=== PATIENT | female | born 1975 | race Caucasian/White ===

== ENCOUNTER 2017-03-08 15:20 | Inpatient (IN) | payer MEDICAID ==
[~2017-03-08] VITALS: Ht 165.1 cm; Wt 93.2 kg
[2017-03-08 16:26] VITALS: Ht 165.1 cm; Wt 93.2 kg
[2017-03-08] MEDS ORDERED: PREN-6 PO (16:28)
[2017-03-08] MEDS ORDERED: CLINDAMYCIN 900 MG/D5W (PMX) 50 ML IV SCH (16:30)
[2017-03-08] MEDS ORDERED: MISOPROSTOL 200 MCG TAB PR PRN (16:30)
[2017-03-08] MEDS ORDERED: OXYTOCIN 30 UNITS/LR 500 ML IV SCH (16:30)
[2017-03-08] MEDS ORDERED: METHYLERGONOVINE 0.2 MG INJ IM PRN (16:30)
[2017-03-08] MEDS ORDERED: CARBOPROST 250 MCG INJ IM PRN (16:30)
[2017-03-08] MEDS ORDERED: OXYTOCIN 30 UNITS/LR 500 ML IV PRN (16:30)
[2017-03-08] MEDS: LACTATED RINGER'S 1,000 ML IV SCH (17:01)
[2017-03-08 17:09] LABS: BASOPHILS % 0.1 % (0.0-2.0); EOSINOPHILS % 0.6 % (0.0-7.0); HEMATOCRIT 40.6 % (37.0-47.0); HEMOGLOBIN 13.9 g/dl (12.0-16.0); LYMPHOCYTES # 1.7 10^3/ul (0.8-2.9); LYMPHOCYTES % 24.1 % (15.0-51.0); MEAN CORPUSCULAR HEMOGLOBIN 30.2 pg (29.0-33.0); MEAN CORPUSCULAR HGB CONC 34.2 g/dl (32.0-37.0); MEAN CORPUSCULAR VOLUME 88.1 fl (82.0-101.0); MEAN PLATELET VOLUME 10.4 fl (7.4-10.4); MONOCYTE # 0.5 10^3/ul (0.3-0.9); MONOCYTES % 7.8 % (0.0-11.0); NEUTROPHIL # 4.7 10^3/ul (1.6-7.5); NEUTROPHILS % 67.1 % (39.0-77.0); PLATELET COUNT 245 10^3/UL (140-415); RED BLOOD COUNT 4.61 10^6/ul (4.20-5.40); RED CELL DISTRIBUTION WIDTH 14.1 % (11.5-14.5)
[2017-03-08 17:26] LABS: INR 0.94; PROTIME 12.6 Sec (12.2-14.2)
[2017-03-08 17:27] LABS: PARTIAL THROMBOPLASTIN TIME 27.5 Sec (25.0-35.0)
[2017-03-08] MEDS ORDERED: GLUCAGON 1 MG INJ IM PRN ×2 (17:30)
[2017-03-08] MEDS ORDERED: DEXTROSE 50% 50 ML SYRINGE IV PRN ×4 (17:30)
[2017-03-08] MEDS ORDERED: GLUCOSE GEL 15 GRAM TUBE PO PRN ×4 (17:30)
[2017-03-08] MEDS ORDERED: GLUCOSE GEL 15 GRAM TUBE BUCCAL PRN ×2 (17:30)
[2017-03-08] MEDS ORDERED: CEFAZOLIN 2 GM/50 ML (PMX) 50 ML IVPB ONE (19:30)
[2017-03-08] MEDS: DEXTROSE 5%-LR 1,000 ML IV SCH (19:36)
[2017-03-08] MEDS: ACCU-CHEK XX SCH (21:00)
[2017-03-08] MEDS: INSULIN ASPART [NOVOLOG] 3 ML PEN SC SCH (21:00)
[2017-03-09 00:20] LABS: BASOPHILS % 0.1 % (0.0-2.0); EOSINOPHILS % 0.5 % (0.0-7.0); HEMATOCRIT 38.2 % (37.0-47.0); HEMOGLOBIN 13.1 g/dl (12.0-16.0); LYMPHOCYTES # 1.3 10^3/ul (0.8-2.9); LYMPHOCYTES % 15.6 % (15.0-51.0); MEAN CORPUSCULAR HGB CONC 34.3 g/dl (32.0-37.0); MEAN CORPUSCULAR VOLUME 87.4 fl (82.0-101.0); MEAN PLATELET VOLUME 10.1 fl (7.4-10.4); MONOCYTE # 0.5 10^3/ul (0.3-0.9); MONOCYTES % 6.4 % (0.0-11.0); NEUTROPHIL # 6.4 10^3/ul (1.6-7.5); PLATELET COUNT 213 10^3/UL (140-415); RED BLOOD COUNT 4.37 10^6/ul (4.20-5.40); WHITE BLOOD COUNT 8.3 10^3/ul (4.8-10.8)
[2017-03-09 00:53] LABS: ALBUMIN/GLOBULIN RATIO 0.85; BILIRUBIN,INDIRECT 0.4 mg/dl (0-1.1); BILIRUBIN,TOTAL 0.4 mg/dl (0.2-1.3); CALCIUM 8.9 mg/dl (8.4-10.2); CREATININE 0.6 mg/dl (0.44-1.00); POTASSIUM 3.6 mmol/L (3.5-5.1); TOTAL PROTEIN 6.5 g/dl (6.1-8.1); URIC ACID 4.7 mg/dl (3.1-7.9)
[2017-03-09] MEDS: INSULIN ASPART [NOVOLOG] 3 ML PEN SC SCH ×4 (01:00→13:00)
[2017-03-09] MEDS: ACCU-CHEK XX SCH ×4 (01:00→13:00)
[2017-03-09] MEDS: LACTATED RINGER'S 1,000 ML IV SCH ×3 (03:06→14:10)
[2017-03-09] MEDS: DEXTROSE 5%-LR 1,000 ML IV SCH ×2 (03:30→11:30)
[2017-03-09 04:30] LABS: ADD UMIC NO; UR ASCORBIC ACID NEGATIVE (NEGATIVE); UR BILIRUBIN (Dip) NEGATIVE (NEGATIVE); UR BLOOD (Dip) NEGATIVE (NEGATIVE); UR CLARITY CLEAR (CLEAR); UR COLOR YELLOW (YELLOW); UR GLUCOSE (Dip) NEGATIVE (NEGATIVE); UR KETONES (Dip) 2+ mg/dL (NEGATIVE); UR LEUKOCYTE ESTERASE (Dip) NEGATIVE Leu/ul (NEGATIVE); UR NITRITE (Dip) NEGATIVE (NEGATIVE); UR SPECIFIC GRAVITY (Dip) 1.015 (1.003-1.030); UR TOTAL PROTEIN (Dip) NEGATIVE (NEGATIVE); UR UROBILINOGEN (Dip) 1+ mg/dL (NEGATIVE)
[2017-03-09] MEDS ORDERED: CLINDAMYCIN 900 MG/D5W (PMX) 50 ML IVPB PRN (08:00)
[2017-03-09] MEDS ORDERED: ONDANSETRON 4 MG INJ ONE (08:23)
[2017-03-09] MEDS ORDERED: CITRIC ACID/NA CITRATE 30 ML CUP ONE (08:23)
[2017-03-09] MEDS ORDERED: METOCLOPRAMIDE 10 MG INJ ONE (09:03)
[2017-03-09] MEDS ORDERED: morphine SULFATE/PF (10 MG/10 ML) INJ ONE (09:03)
[2017-03-09] MEDS ORDERED: PHENYLephrine (100 MCG/ML) 5ML SYG ONE (09:03)
[2017-03-09] MEDS ORDERED: OXYTOCIN 10 UNIT INJ ONE (09:03)
[2017-03-09] MEDS ORDERED: FENTAnyl 50 MCG/ML VIAL ONE (09:03)
[2017-03-09] MEDS ORDERED: NALBUPHINE HCL (10 MG/1 ML) INJ IV PRN (11:00)
[2017-03-09] MEDS ORDERED: ONDANSETRON 4 MG INJ IV PRN ×2 (11:00)
[2017-03-09] MEDS ORDERED: OXYCODONE/ACETAMINOPHEN (5/325) TAB PO PRN ×4 (11:00→14:30)
[2017-03-09] MEDS ORDERED: NALOXONE (0.4 MG/ML) INJ IV PRN (11:00)
[2017-03-09] MEDS ORDERED: TRIMETHOBENZAMIDE 100 MG/ML VIAL IM PRN ×2 (11:00)
[2017-03-09] MEDS ORDERED: ZOLPIDEM 5 MG TAB PO PRN (11:00)
[2017-03-09] MEDS ORDERED: IPRATROPIUM (NEB) 0.5 MG/2.5 ML AMP HHN PRN (11:00)
[2017-03-09] MEDS ORDERED: EPHEDrine SULFATE 50 MG/5 ML SYG IV PRN (11:00)
[2017-03-09] MEDS ORDERED: ALBUTEROL 0.083% (NEB) 2.5 MG/3 ML AMP HHN PRN (11:00)
[2017-03-09] MEDS ORDERED: hydrALAzine 20 MG INJ IV PRN (11:00)
[2017-03-09] MEDS ORDERED: FENTAnyl 50 MCG/ML VIAL IV PRN ×3 (11:00)
[2017-03-09] MEDS ORDERED: DIPHENHYDRAMINE 50 MG INJ IV PRN ×2 (11:00)
[2017-03-09] MEDS ORDERED: MEPERIDINE 25 MG INJ IV PRN (11:00)
[2017-03-09] MEDS ORDERED: HYDROmorphONE (0.2 MG/ML) 10ML SYG IV PRN ×3 (11:00)
[2017-03-09] MEDS ORDERED: LABETALOL HCL 20MG INJ IV PRN (11:00)
[2017-03-09] MEDS ORDERED: morphine 2 MG INJ IV PRN (11:00)
[2017-03-09] MEDS ORDERED: morphine 4 MG/ML VIAL IV PRN (11:00)
--- NOTE | 2017-03-09 11:10 | OPR ---
Operative Report Planned Procedure Free Text/Dictation 41 years old female history of 2 previous complicated with gestational diabetes, nonreassuring heart tracing, delivery recommended by the perinatologist. Procedure date Mar 09, 2017 Procedure(s) Repeat bilateral tubal ligation Performed by see signature line Assisting provider: VENTURA BEAL MD Anesthesiologist: Navi Bee M.D. Pre-procedure diagnosis 89 weeks 2 days 3 of 2 previous complicated with gestational diabetes nonreassuring heart tracing delivery recommended by the perinatology Anesthesia Type: spinal Procedure Description Under satisfactory spinal [] anesthesia, the patient was prepped and draped and placed in a supine position, tilted to the left. Pfannenstiel incision was made , carried through the subcutaneous tissue. Bleeders brought under control with electrocautery. Fascia incised to the length of the incision. Rectus muscles from the fascia, divided midline. Peritoneum exposed, entered through a transverse incision. Exploration of abdomen revealed gravid uterus. Normal- appearing tubes and ovaries bladder flap was developed. Transverse incision was made in the lower segment of the uterus. Amniotic sac ruptured. Clear [] amniotic fluid noted. Light baby girl was delivered from unengaged vertex [] Nasal oropharyngeal suction was performed. baby handed to the team for immediate attention. She received 20 units of Pitocin placenta delivered manually intact. Uterine cavity cleaned with wet sponge and drainage established. Uterus closed in 2 layers using [Krill #1] in continuous fashion. Lateral tubal ligation performed identifying the ampulla and fimbria of the right fallopian tube suture material used #0 plain catgut was reinforced with the same suture material and that portion of the tube was excised and submitted to the pathology the same procedure performed for the opposite side peritoneal cavity irrigated with warm saline. Sponge, needle and instrument count reported to be correct. Abdominal peritoneum closed with [] 0 chromic catgut continuously. Rectus muscle approximated with 0 chromic catgut []. Fascia closed with #1 PDS [], subcutaneous tissue approximated with few interrupted 2- 0 chromic catgut. Then closed with nsorb estimated blood loss 600. Urine bag contained 200 mL of clear urine and tolerated procedure well transferred to recovery room in good Post-Procedure Findings: Live Baby girl 9 and 9, cord cord 3 Estimated blood loss: other (600) Specimen(s): no Grafts/Implants: no Complication(s): no Pt Condition post procedure: stable Physician Certification I, the undersigned physician, hereby certify that I have discussed the procedure described in this consent form with this patient (or the patient's legal patient access representative), including: * The risk and benefits of the procedure; * Any adverse reactions that may reasonably be expected to occur; * Any alternative efficacious methods of treatment which may be medically viable ; * The potential problems that may occur during recuperation; * Potential for blood transfusion and associated risks/benefits; and * Any research or economic interest I may have regarding this treatment. I further certify that the patient/legally responsible person was encouraged to ask question and that all questions were answered. MARY MEEKS MD Mar 09, 2017 11:08
[2017-03-09] MEDS: KETOROLAC 30 MG INJ IV PRN ×2 (13:00→23:11)
[2017-03-09 13:55] VITALS: BP 108/63; PULSE 87; RESP 18
[2017-03-09] MEDS: OXYTOCIN 30 UNITS/LR 500 ML IV SCH ×5 (14:10→22:10)
[2017-03-09 14:30] VITALS: BP 105/57; PULSE 90; RESP 18
[2017-03-09] MEDS ORDERED: OXYTOCIN 30 UNITS/LR 500 ML IV PRN (14:30)
[2017-03-09] MEDS ORDERED: CARBOPROST 250 MCG INJ IM PRN (14:30)
[2017-03-09] MEDS ORDERED: METHYLERGONOVINE 0.2 MG INJ IM PRN (14:30)
[2017-03-09] MEDS ORDERED: MISOPROSTOL 200 MCG TAB PR PRN (14:30)
[2017-03-09] MEDS ORDERED: LANOLIN 7 GM TUBE TOP PRN (14:30)
[2017-03-09] MEDS ORDERED: CEFAZOLIN 1 GM/50 ML (PMX) 50 ML IVPB SCH (14:30)
[2017-03-09 14:49] LABS: BARBITURATES Negative (NEGATIVE); BENZODIAZEPINES Negative (NEGATIVE); CANNABINOIDS Negative (NEGATIVE); COCAINE Negative (NEGATIVE); OPIATES Negative (NEGATIVE)
[2017-03-09 16:00] VITALS: BP 101/55; PULSE 80; RESP 18
[2017-03-09 20:00] VITALS: BP 124/68; PULSE 73; RESP 18
[2017-03-09] MEDS: SENNA/DOCUSATE NA (8.6MG/50MG) TAB PO SCH (21:12)
[2017-03-10 00:45] VITALS: BP 108/68; PULSE 97
[2017-03-10] MEDS: OXYTOCIN 30 UNITS/LR 500 ML IV SCH ×4 (02:10→14:10)
[2017-03-10] MEDS: LACTATED RINGER'S 1,000 ML IV SCH ×3 (02:51→14:10)
[2017-03-10 04:35] VITALS: BP 110/63; PULSE 95; RESP 18
[2017-03-10 08:34] VITALS: BP 107/59; PULSE 87; RESP 18
[2017-03-10] MEDS: KETOROLAC 30 MG INJ IV PRN (08:34)
[2017-03-10] MEDS: SENNA/DOCUSATE NA (8.6MG/50MG) TAB PO SCH ×2 (09:00→20:35)
[2017-03-10 10:07] LABS: BASOPHILS % 0.2 % (0.0-2.0); EOSINOPHILS % 0.5 % (0.0-7.0); HEMOGLOBIN 11.1 g/dl (12.0-16.0); LYMPHOCYTES # 1.1 10^3/ul (0.8-2.9); LYMPHOCYTES % 17.3 % (15.0-51.0); MEAN CORPUSCULAR HEMOGLOBIN 30.2 pg (29.0-33.0); MEAN CORPUSCULAR HGB CONC 33.6 g/dl (32.0-37.0); MEAN CORPUSCULAR VOLUME 89.7 fl (82.0-101.0); MEAN PLATELET VOLUME 10.1 fl (7.4-10.4); MONOCYTE # 0.6 10^3/ul (0.3-0.9); MONOCYTES % 9.7 % (0.0-11.0); NEUTROPHIL # 4.5 10^3/ul (1.6-7.5); NEUTROPHILS % 71.8 % (39.0-77.0); PLATELET COUNT 192 10^3/UL (140-415); RED BLOOD COUNT 3.68 10^6/ul (4.20-5.40); RED CELL DISTRIBUTION WIDTH 14.5 % (11.5-14.5); WHITE BLOOD COUNT 6.2 10^3/ul (4.8-10.8)
[2017-03-10] MEDS ORDERED: INFLUENZA VIRUS VACCINE 0.5 ML SYG IM* ONE (12:00)
[2017-03-10] MEDS: IBUPROFEN 600 MG TAB PO SCH ×2 (12:26→17:29)
[2017-03-10] MEDS: HYDROCODONE/APAP (5/325) TAB PO PRN ×2 (15:19→20:36)
[2017-03-10 17:00] VITALS: BP 111/68; PULSE 86; RESP 18
[2017-03-10 19:30] VITALS: BP 135/78; PULSE 100; RESP 19
[2017-03-11] MEDS: IBUPROFEN 600 MG TAB PO SCH ×4 (00:16→17:30)
[2017-03-11] MEDS: HYDROCODONE/APAP (5/325) TAB PO PRN (03:44)
[2017-03-11 04:00] VITALS: BP 114/64; PULSE 81; RESP 18
[2017-03-11 08:00] VITALS: BP 105/62; PULSE 80; RESP 17
[2017-03-11] MEDS: SENNA/DOCUSATE NA (8.6MG/50MG) TAB PO SCH ×2 (09:08→22:27)
--- NOTE | 2017-03-11 09:38 | HP ---
Date/Time of Note Date/Time of Note DATE: 03/11/17 TIME: 09:25 OB - History Hx of Present Free Text/Dictation ,41 years old female, history of 2 previous section with a EDC March 13, 2017 and request for bilateral tubal ligation at the time of repeat section admitted to [facility] for the above-mentioned operation this patient has been under the care of the [facility] her not complicated with gestational diabetes -induced hypertension [employer] history [place] at age 11 history of total of 3 pregnancies including present 2 previous section Allergies allergic to penicillin Social habit denies a smoking drinking using illicit drug Review of system within normal Physical examination 5 feet 5 235 pounds blood pressure 93/54 pulse 102 respiration 18 temperature 97.6 Head ears nose and throat negative Neck supple no thyromegaly Lungs clear to P&A Heart normal changes of rhythm no murmur Abdomen fundal height 38 cm from symphysis pubis with a heart rate category 1 Pelvic examination deferred Extremities no edema Impression intrauterine at 39 weeks and 3 history of 2 previous section request for voluntary sterilization bilateral tubal ligation complication of the surgery including but not limited to bowel and bladder injury infection hemorrhage and wound hematoma also failure rate of tubal ligation increased risk of ectopic future failure to conceive has been extensively explained to the patient she would like to proceed with repeat bilateral tubal ligation Chief Complaint: Term history of 2 previous section request for BTL Estimated Due Date: Mar 13, 2017 : 3 Para: 2 Care: Good Care Ultrasounds: Normal mid trimester US Obstetrical Complications: None Medical Complications: None Past Family/Social History * Past Medical, Surgical, Family and Obstetric Histories reviewed from chart. Rubella: immune RPR/VDRL: Negative GBS Status: Negative HBsAG: Negative OB Admission Exam Vital Signs Vital Signs Vital Signs Date Time Temp Pulse Resp B/P Pulse Ox O2 Delivery O2 Flow Rate FiO2 03/11/17 04:00 98.0 81 18 114/64 Room Air 03/11/17 02:00 97 21 Physical Exam HEENT: WNL Heart: Rhythm Normal Lungs: Clear, Equal Abdomen: WNL Extremities: Normal Reflexes: Normal Cervical Dilatation: None Station: -2 Membranes: Intact Heart Rate: 130's Accelerations: Accelerations Present Decelerations: No Decelerations Varibility: Moderate Contractions on Admission: >10 Minutes Apart Intensity: Mild Last 72 hourBlood Glucose Bedside Glucose - 72 Hours Test 03/08/17 19:23 03/08/17 20:58 03/08/17 23:07 03/09/17 01:06 Bedside Glucose 96mg/dL (70-220) 114mg/dL (70-220) 99mg/dL (70-220) 129mg/dL (70-220) Test 03/09/17 03:04 03/09/17 05:10 03/09/17 07:27 03/09/17 11:49 Bedside Glucose 101mg/dL (70-220) 110mg/dL (70-220) 110mg/dL (70-220) 125mg/dL (70-220) Test 03/09/17 17:12 03/09/17 21:57 03/10/17 08:32 03/10/17 11:47 Bedside Glucose 112mg/dL (70-220) 103mg/dL (70-220) 110mg/dL (70-220) 132mg/dL (70-220) Test 03/10/17 21:34 03/11/17 08:12 Bedside Glucose 148mg/dL (70-220) 109mg/dL (70-220) Last 72 hours Lab Results CBC & BMP 03/08/17 16:52 03/09/17 00:10 03/10/17 09:41 Liver Function Test 03/09/17 00:10 Alanine Aminotransferase (ALT/SGPT) 35 Albumin 3.0 L Alkaline Phosphatase 161 H Aspartate Amino Transf (AST/SGOT) 28 Direct Bilirubin 0.00 Total Protein 6.5 OB Assessment/Plan Reason for admission: other (41 years old female history of 2 previous section request for bilateral tubal ligation at the time of ) Plan: Other (,.41 years old history of 2 previous with request for bilateral tubal ligation is undergoing the repeat and bilateral tubal ligation she has been counseled regarding the failure rate of tubal ligation increased risk of ectopic future failure to conceive complication of the including but not limited to bowel and bladder injury infection hemorrhage and hematoma all her questions answered she is willing to go ahead with this procedure) MARY MEEKS MD Mar 11, 2017 09:37
[2017-03-11 10:44] LABS: BASOPHILS % 0.2 % (0.0-2.0); EOSINOPHILS # 0.1 10^3/ul (0.0-0.5); EOSINOPHILS % 2.3 % (0.0-7.0); HEMATOCRIT 34.3 % (37.0-47.0); HEMOGLOBIN 11.1 g/dl (12.0-16.0); LYMPHOCYTES # 1.8 10^3/ul (0.8-2.9); LYMPHOCYTES % 29.9 % (15.0-51.0); MEAN CORPUSCULAR HEMOGLOBIN 30.1 pg (29.0-33.0); MEAN CORPUSCULAR HGB CONC 32.4 g/dl (32.0-37.0); MEAN PLATELET VOLUME 10.4 fl (7.4-10.4); MONOCYTE # 0.7 10^3/ul (0.3-0.9); MONOCYTES % 11.5 % (0.0-11.0); NEUTROPHIL # 3.4 10^3/ul (1.6-7.5); NEUTROPHILS % 55.8 % (39.0-77.0); PLATELET COUNT 207 10^3/UL (140-415); RED BLOOD COUNT 3.69 10^6/ul (4.20-5.40); RED CELL DISTRIBUTION WIDTH 14.6 % (11.5-14.5); WHITE BLOOD COUNT 6.1 10^3/ul (4.8-10.8)
--- NOTE | 2017-03-11 12:01 | NSTRPT ---
NST Information Datetime Report Generated by CPN: 03/11/2017 12:01 Datetime: 03/08/2017 13:49 NST Information EGA: 39.2 Test Number: 3 Time on Monitor: 03/08/2017 14:28 Time off Monitor: 03/08/2017 15:15 NST Duration (Min): 47 Reason for NST: Diabetes Mellitus; Other Reason for NST Other: A1DM Test and Monitor Explained: Monitor Explained; Test Explained; Verbalized Understanding Pulse: 100 Resp: 18 SBP: 122 DBP: 79 Test Evaluation NST Interventions: PO Hydration; Reposition Patient; Acoustic Stimulation Patient States Movement: Present Contraction Frequency: NONE FHR Baseline : 145 Variability: Moderate 6-25bpm Accelerations: 15X15 FHR Category: Category I NST Results: Reactive Comments: To u/s, LEIDA 12.7, Cephalic, FBS 119 Dr Capellan in to review NST and talk with pt. 1500-Call placed to Dr Cerrato, Dr Capellan speaking with Dr Cerrato. Recommending delivery (pt has had 2 prior c/s, NPO since 1230). Order received for adm to L_D. Dr Capellan spoke with Andra KENNY, L_Augustina. POC explained to pt. States understanding. Maria Spoke w ith pt and sig other. Electronically Signed By E-Signature: with User ID: [id number] Datetime: 03/08/2017 07:57 Comments: Call placed to pt, per Dr Capellan, to return to NST today for follow up NST. No answer, me sanders left for pt to return and call back. 1050-Call placed to [facility], requesting them to contact patient to return for follow u p testing today. States that pt is in clinic at this time and will instruct pt to come to NST today at 1300.
[2017-03-11 16:00] VITALS: BP 142/90; PULSE 86; RESP 18
--- NOTE | 2017-03-11 19:20 | PN ---
Date/Time of Note Date/Time of Note DATE: 03/11/17 TIME: 19:11 OB Subjective Subjective Subjective Post C section day 1 Gestational Diabetes Mellitus Doing relative well Afebrile Ambulatory Chest Clear Breasts are soft , Nipples are intact Abdomen is soft Fundus is firm Moderate amount of lochia Incision is clean ,No evidence of infection No calf tenderness No ankle edema Laboratory Tests Test 03/10/17 21:34 03/11/17 08:12 03/11/17 09:18 03/11/17 11:30 Bedside Glucose 148mg/dL 109mg/dL 123mg/dL White Blood Count 6.110^3/ul Red Blood Count 3.6910^6/ul Hemoglobin 11.1g/dl Hematocrit 34.3% Mean Corpuscular Volume 93.0fl Mean Corpuscular Hemoglobin 30.1pg Mean Corpuscular Hemoglobin Concent 32.4g/dl Red Cell Distribution Width 14.6% Platelet Count 54671^3/UL Mean Platelet Volume 10.4fl Neutrophils % 55.8% Lymphocytes % 29.9% Monocytes % 11.5% Eosinophils % 2.3% Basophils % 0.2% Nucleated Red Blood Cells % 0.0/100WBC Neutrophils # 3.410^3/ul Lymphocytes # 1.810^3/ul Monocytes # 0.710^3/ul Eosinophils # 0.110^3/ul Basophils # 0.010^3/ul Nucleated Red Blood Cells # 0.010^3/ul Test 03/11/17 15:23 Bedside Glucose 110mg/dL Current Medications Medications (Trade) Dose Ordered Sig/Radha Route PRN Reason Start Time Stop Time Status Last Admin Dose Admin Lactated Ringer's 1,000 ml @ 125 mls/hr Q8H IV 03/08/17 16:10 03/09/17 14:15 DC 03/09/17 08:50 Clindamycin HCl/ Dextrose 50 ml @ 50 mls/hr ONCE IV 03/08/17 16:30 03/08/17 19:57 DC Oxytocin/Lactated Ringer's 500 ml @ 125 mls/hr ONCE IV 03/08/17 16:30 03/09/17 14:15 DC 03/09/17 11:42 Oxytocin/Lactated Ringer's 500 ml @ 0 mls/hr ONCE PRN IV For Hemorrhage Management 03/08/17 16:30 03/09/17 14:15 DC Methylergonovine Maleate (Methergine) 0.2 mg ONCE PRN IM VAGINAL BLEEDING 03/08/17 16:30 03/09/17 14:15 DC Carboprost Tromethamine (Hemabate) 250 mcg ONCE PRN IM VAGINAL BLEEDING 03/08/17 16:30 03/09/17 14:15 DC Misoprostol (Cytotec) 1,000 mcg ONCE PRN ND VAGINAL BLEEDING 03/08/17 16:30 03/09/17 14:15 DC Diagnostic Test (Pha) (Accu-Chek) 1 ea Q4 XX 03/08/17 21:00 03/09/17 14:15 DC 03/09/17 05:00 Insulin Aspart (Novolog Insulin Pen) Check Blood gluc... Q4 SC 03/08/17 21:00 03/09/17 14:15 DC Miscellaneous Information (* Miscellaneous Pharmacy Order) 1 ea OB HYPOGLYCEMIA ONCE XX 03/08/17 17:30 03/08/17 17:31 DC Miscellaneous Information 1 ea NOTE XX 03/08/17 17:30 03/09/17 14:15 DC Glucose (Glutose) 15 gm Q15M PRN PO DECREASED GLUCOSE 03/08/17 17:30 Cancel Glucose (Glutose) 22.5 gm Q15M PRN PO DECREASED GLUCOSE 03/08/17 17:30 Cancel Dextrose (D50w Syringe) 25 ml Q15M PRN IV DECREASED GLUCOSE 03/08/17 17:30 Cancel Dextrose (D50w Syringe) 50 ml Q15M PRN IV DECREASED GLUCOSE 03/08/17 17:30 Cancel Glucagon (Glucagen) 1 mg Q15M PRN IM DECREASED GLUCOSE 03/08/17 17:30 Cancel Glucose (Glutose) 15 gm Q15M PRN BUCCAL DECREASED GLUCOSE 03/08/17 17:30 Cancel Miscellaneous Information 1 ea NOTE XX 03/08/17 17:30 03/09/17 14:15 DC Glucose (Glutose) 15 gm Q15M PRN PO DECREASED GLUCOSE 03/08/17 17:30 03/09/17 14:15 DC Glucose (Glutose) 22.5 gm Q15M PRN PO DECREASED GLUCOSE 03/08/17 17:30 03/09/17 14:15 DC Dextrose (D50w Syringe) 25 ml Q15M PRN IV DECREASED GLUCOSE 03/08/17 17:30 03/09/17 14:15 DC Dextrose (D50w Syringe) 50 ml Q15M PRN IV DECREASED GLUCOSE 03/08/17 17:30 03/09/17 14:15 DC Glucagon (Glucagen) 1 mg Q15M PRN IM DECREASED GLUCOSE 03/08/17 17:30 03/09/17 14:15 DC Glucose 15 gm 15 gm Q15M PRN BUCCAL DECREASED GLUCOSE 03/08/17 17:30 03/09/17 14:15 DC Dextrose/Lactated Ringer's 1,000 ml @ 125 mls/hr Q8H IV 03/08/17 19:30 03/09/17 14:15 DC 03/08/17 19:36 Cefazolin Sodium/ Dextrose 50 ml @ 100 mls/hr ONCE ONCE IVPB 03/08/17 19:30 03/09/17 07:58 DC Clindamycin HCl/ Dextrose (Cleocin 900 Mg/ D5W (Pmx)) 50 ml @ 50 mls/hr ONCE PRN IVPB BEFORE C/S 03/09/17 08:00 03/09/17 10:00 DC Citric Acid/ Sodium Citrate (Bicitra) 30 ml STK-MED ONCE .ROUTE 03/09/17 08:23 03/09/17 08:24 DC Ondansetron HCl (Zofran Inj) 4 mg STK-MED ONCE .ROUTE 03/09/17 08:23 03/09/17 08:24 DC Morphine Sulfate (Duramorph) 10 mg STK-MED ONCE .ROUTE 03/09/17 09:03 03/09/17 09:04 DC Fentanyl (Sublimaze) 100 mcg STK-MED ONCE .ROUTE 03/09/17 09:03 03/09/17 09:04 DC Phenylephrine HCl (Gopi-Synephrine Inj Syg) 500 mcg STK-MED ONCE .ROUTE 03/09/17 09:03 03/09/17 09:04 DC Metoclopramide HCl (Reglan) 10 mg STK-MED ONCE .ROUTE 03/09/17 09:03 03/09/17 09:04 DC Oxytocin (Oxytocin) 10 units STK-MED ONCE .ROUTE 03/09/17 09:03 03/09/17 09:04 DC Hydromorphone HCl (Dilaudid (Rec)) 0.2 mg PACU ORDER PRN IV MILD PAIN LEVEL 1-3 03/09/17 11:00 03/09/17 14:15 DC Hydromorphone HCl (Dilaudid (Rec)) 0.4 mg PACU ORDER PRN IV MODERATE PAIN LEVEL 4-6 03/09/17 11:00 03/09/17 14:15 DC Hydromorphone HCl (Dilaudid (Rec)) 0.6 mg PACU ORDER PRN IV SEVERE PAIN LEVEL 7-10 03/09/17 11:00 03/09/17 14:15 DC Fentanyl (Sublimaze) 25 mcg PACU ORDER PRN IV MILD PAIN LEVEL 1-3 03/09/17 11:00 03/09/17 14:15 DC Fentanyl (Sublimaze) 50 mcg PACU ODER PRN IV MODERATE PAIN LEVEL 4-6 03/09/17 11:00 03/09/17 14:15 DC Fentanyl (Sublimaze) 75 mcg PACU ORDER PRN IV SEVERE PAIN LEVEL 7-10 03/09/17 11:00 03/09/17 14:15 DC Oxycodone/ Acetaminophen (Percocet (5/ 325)) 1 tab PACU ORDER PRN PO PAIN LEVEL 1-5 03/09/17 11:00 03/09/17 14:15 DC Oxycodone/ Acetaminophen (Percocet (5/ 325)) 2 tab PACU ORDER PRN PO PAIN LEVEL 6-10 03/09/17 11:00 03/09/17 14:15 DC Ondansetron HCl (Zofran Inj) 4 mg PACU ORDER PRN IV NAUSEA AND/OR VOMITING 03/09/17 11:00 03/09/17 14:15 DC Trimethobenzamide HCl (Tigan) 200 mg PACU ORDER PRN IM NAUSEA AND/OR VOMITING 03/09/17 11:00 03/09/17 14:15 DC Labetalol HCl (Labetalol) 5 mg PACU ORDER PRN IV HIGH BLOOD PRESSURE 03/09/17 11:00 03/09/17 14:15 DC Hydralazine HCl (Apresoline) 5 mg PACU ORDER PRN IV HIGH BLOOD PRESSURE 03/09/17 11:00 03/09/17 14:15 DC Ephedrine Sulfate 5 mg PACU ORDER PRN IV MAP LESS THAN 60 03/09/17 11:00 03/09/17 14:15 DC Albuterol (Proventil 0.083% (Neb)) 2.5 mg PACU ORDER PRN HHN WHEEZING 03/09/17 11:00 03/09/17 14:15 DC Ipratropium [place] (Atrovent 0.02% (Neb)) 0.5 mg PACU ORDER PRN HHN WHEEZING 03/09/17 11:00 03/09/17 14:15 DC Meperidine HCl (Demerol) 25 mg PACU ORDER PRN IV POST-OP RIGORS 03/09/17 11:00 03/09/17 14:15 DC Diphenhydramine HCl (Benadryl) 25 mg PACU ORDER PRN IV PRURITUS 03/09/17 11:00 03/09/17 14:15 DC Naloxone HCl (Narcan) 0.1 mg Q2M PRN IV FOR RESP RATE 8 OR LESS 03/09/17 11:00 03/10/17 10:59 DC Ketorolac Tromethamine (Toradol) 30 mg Q6H PRN IV PAIN 03/09/17 11:00 03/10/17 10:59 DC 03/10/17 08:34 Morphine Sulfate (morphine) 2 mg Q3H PRN IV PAIN LEVEL 1-5 03/09/17 11:00 03/10/17 10:59 DC Morphine Sulfate (morphine) 4 mg Q3H PRN IV PAIN LEVEL 6-10 03/09/17 11:00 03/10/17 10:59 DC Diphenhydramine HCl (Benadryl) 25 mg Q6H PRN IV ITCHING 03/09/17 11:00 03/10/17 10:59 DC Nalbuphine HCl (Nubain) 5 mg ONCE PRN IV ITCHING 03/09/17 11:00 03/10/17 10:59 DC Ondansetron HCl (Zofran Inj) 4 mg Q6H PRN IV NAUSEA AND/OR VOMITING 03/09/17 11:00 03/10/17 10:59 DC Trimethobenzamide HCl (Tigan) 200 mg Q6H PRN IM NAUSEA AND/OR VOMITING 03/09/17 11:00 03/10/17 10:59 DC Zolpidem Tartrate (Ambien) 5 mg HS MAY REPEAT X 1 PRN PO INSOMNIA 03/09/17 11:00 03/10/17 10:59 DC Miscellaneous Information Duramorph: 0.2 mg Spi... GIVEN XX 03/09/17 11:00 03/09/17 14:15 DC Lactated Ringer's 1,000 ml @ 125 mls/hr Q8H IV 03/09/17 14:10 03/10/17 18:30 DC 03/10/17 02:51 Oxytocin/Lactated Ringer's 500 ml @ 125 mls/hr Q4H IV 03/09/17 14:10 03/09/17 22:09 DC 03/09/17 16:16 Acetaminophen/ Hydrocodone Bitart (Exchange (5/325)) 1 tab Q4H PRN PO PAIN LEVEL 4-6 03/09/17 14:30 Acetaminophen/ Hydrocodone Bitart (Exchange (5/325)) 2 tab Q4H PRN PO PAIN LEVEL 7-10 03/09/17 14:30 03/11/17 03:44 Oxycodone/ Acetaminophen (Percocet (5/ 325)) 1 tab Q4H PRN PO PAIN LEVEL 4-6 03/09/17 14:30 Oxycodone/ Acetaminophen (Percocet (5/ 325)) 2 tab Q4H PRN PO PAIN LEVEL 7-10 03/09/17 14:30 Ibuprofen (Motrin) 600 mg Q6 PO 03/10/17 12:00 03/11/17 17:30 Simethicone (Mylicon) 160 mg Q8H PRN PO DISTENSION/GAS/BLOATING 03/09/17 14:30 Senna/Docusate Sodium (Senokot-S) 1 tab BID PO 03/09/17 21:00 03/11/17 09:08 Lanolin (Oan-P-Urfpey) 1 applic BEDSIDE MEDICATION PRN TOP BEDSIDE FOR GERRI TO NIPPLES 03/09/17 14:30 03/10/17 08:34 Diphtheria/ Tetanus/Acell Pertussis 0.5 ml 0.5 ml ONCE ONCE IM* 03/12/17 09:00 03/12/17 09:01 Oxytocin/Lactated Ringer's 500 ml @ 0 mls/hr ONCE PRN IV For Hemorrhage Management 03/09/17 14:30 Methylergonovine Maleate (Methergine) 0.2 mg ONCE PRN IM VAGINAL BLEEDING 03/09/17 14:30 Carboprost Tromethamine (Hemabate) 250 mcg ONCE PRN IM VAGINAL BLEEDING 03/09/17 14:30 Misoprostol 1000 mcg 1,000 mcg ONCE PRN ND VAGINAL BLEEDING 03/09/17 14:30 Cefazolin Sodium 50 ml @ 100 mls/hr ONCE IVPB 03/09/17 14:30 03/09/17 14:59 DC 03/09/17 17:49 Oxytocin/Lactated Ringer's 500 ml @ 125 mls/hr Q4H IV 03/09/17 14:10 03/10/17 18:30 DC 03/09/17 21:48 IV Flush (NS 10 ml) 10 ml Q8H AND PRN IV 03/09/17 14:30 Influenza Virus Vaccine (Fluzone) 0.5 ml ONCE ONCE IM* 03/10/17 12:00 03/10/17 12:01 DC 03/11/17 18:25 Sodium Biphosphate/ Sodium Phosphate (Fleet Enema) 133 ml DAILY PRN ND CONSTIPATION 03/11/17 23:00 Fasting blood glucose 110 On 1800 Alyssia ADA diet New born is doing well, Breast feeding ROSANNA MURRAY MD Mar 11, 2017 19:20
[2017-03-11 20:00] VITALS: BP 136/81; PULSE 80; RESP 18
[2017-03-11] MEDS ORDERED: NA PHOSPHATE/BIPHOS 133 ML ENEMA PR PRN (23:00)
[2017-03-12] MEDS: IBUPROFEN 600 MG TAB PO SCH ×4 (00:54→18:00)
[2017-03-12] MEDS: HYDROCODONE/APAP (5/325) TAB PO PRN ×2 (03:10→15:32)
[2017-03-12 03:30] VITALS: BP 131/82; PULSE 76; RESP 18
[2017-03-12 08:19] VITALS: BP 113/60; PULSE 79; RESP 18
[2017-03-12] MEDS ORDERED: DIPHTH/TET/ACEL PERTUSS (ADULT) 0.5 ML VIAL IM* ONE (09:00)
[2017-03-12] MEDS: SENNA/DOCUSATE NA (8.6MG/50MG) TAB PO SCH (10:06)
--- NOTE | 2017-03-12 12:33 | PD.PPDC ---
RECEPTIONIST CLERK Discharge Instruction Condition Patient Condition: Good Diet Diet: Resume Regular Diet Activity/Restrictions Activity: Normal Activity May Shower Restrictions: No Exercising No Lifting No Driving No Sexual Activity Nothing in the Vagina No [place] No Tampons, douche Wound/Drain Care Instructions Wound/Drain Care Instructions: Remove Steri Strips in 1 week Wash with soap and water Keep clean and dry Follow-up Follow-up with Physician: 1, Week/Weeks Return to clinic for FIELD CONTACT PERSON Instructions: Fever greater than 101 Chills Worsening abdominal pain Excessive Vaginal Bleeding More than 2 pads per hour Unable to tolerate diet OB Instructions: Breast Tenderness Depression Blurried Vision Headache MARY MEEKS MD Mar 12, 2017 12:33
--- NOTE | 2017-03-12 12:43 | DS ---
Date/Time of Note Date/Time of Note DATE: 03/12/17 TIME: 12:40 Obstetrical Discharge Record Final Diagnosis Final Diagnosis: Term delivered Section Section: Repeat Complications Augmentation: No Induction: No Rupture of Membranes: No Condition on Discharge Physical Assessment Last Vitals: Vital signs are stable, abdomen soft, incision dry and healing well, good bowel sounds present, patient had normal bowel movement, discharged home with instructions to be seen at the clinic in 1 week for post check Voiding: Yes Bowel Movement: Yes Breast: Filling Abdomen and Incision: Dry healing well Calf Tenderness: No Patient Condition: Good MARY MEEKS MD Mar 12, 2017 12:43
[2017-03-12 15:32] VITALS: BP 120/72; PULSE 76; RESP 18
== END 2017-03-12 18:25 | disposition home or self-care (01) | DRG 766 ==
LOC: L-D 15:38 → EDBD 15:38 → L-D 17:58 → PP1 03-09 14:22
PROVIDERS: ADMIT Obstetrics & Gynecology; ATTEND Obstetrics & Gynecology
PROC: 0UB70ZZ Excision of Bilateral Fallopian Tubes, Open Approach (ICD-10-PCS; 2017-03-09)
PROC: 10D00Z1 Extraction of Products of Conception, Low, Open Approach (ICD-10-PCS; principal; 2017-03-09 10:15)
DX: O36.8130 Decreased fetal movements, third trimester, not applicable or unspecified (principal); Z30.2 Encounter for sterilization; Z37.0 Single live birth; O34.219 Maternal care for unspecified type scar from previous cesarean delivery; Z3A.39 39 weeks gestation of pregnancy
CPT/HCPCS: 80053; 80307; 81003; 82947; 82962; 84560; 85025; 85610; 85730; 86592; 86850; 86900; 86901; 87340; 88302; 90686; 90715; 94760; 99464; J0690; J1815; J1885; J2274; J2370; J2405; J2590; J2765; J3010; J7120; J7121